=== PATIENT | male | born 1985 | race Two or more races ===

== ENCOUNTER 2020-05-01 20:19 | Emergency (ER) | payer OTHER ==
[~2020-05-01] VITALS: Ht 172.7 cm; Wt 95.3 kg
[2020-05-01 20:33] VITALS: Ht 172.7 cm; Wt 95.3 kg
[2020-05-01 22:25] VITALS: BP 126/80
== END 2020-05-01 22:26 | disposition home or self-care (01) ==
LOC: ED 20:19
DX: S52.502A Unspecified fracture of the lower end of left radius, initial encounter for closed fracture (principal); S52.202A Unspecified fracture of shaft of left ulna, initial encounter for closed fracture; V99.XXXA Unspecified transport accident, initial encounter; Y93.I9 Activity, other involving external motion; Y92.413 State road as the place of occurrence of the external cause; Y99.8 Other external cause status
CPT/HCPCS: 90715; J2270; J2405